=== PATIENT | female | born 1960 | race Two or more races ===

== ENCOUNTER 2017-04-28 13:20 | Emergency (ER) | payer OTHER ==
[~2017-04-28] VITALS: Ht 160 cm; Wt 98.0 kg
[2017-04-28] MEDS ORDERED: SODIUM CHLORIDE 0.9% 1,000 ML IV ONE (13:49)
[2017-04-28 14:29] LABS: Urine Bilirubin Negative (Negative); Urine Blood Negative /uL (Negative); Urine Ca Oxalate Crystal MANY (None Seen); Urine Color Yellow (Yellow); Urine Glucose Normal (Normal); Urine Hyaline Cast FEW /lpf (0 - 2); Urine Ketone Negative (Negative); Urine Mucus FEW (None Seen); Urine Nitrite Negative (Negative); Urine RBC 1 /hpf (0 - 4); Urine Squamous Epithelial Cell FEW /hpf (<5); Urine Urobilinogen Normal (Negative); Urine pH 5.5 (5.0-8.0)
[2017-04-28 14:29] LABS: Basophils # (auto) 0.1 uL; CONDITION Y; Eosinophils # (auto) 0.2 uL; Eosinophils % (auto) 1.2 % (0.0-7.0); Hematocrit 45.3 % (36.0-46.0); Hemoglobin 15.1 g/dL (12.2-16.2); Lymphocytes # (auto) 4.3 uL; Lymphocytes % (auto) 32.3 % (10.0-50.0); Mean Corpuscular Hemoglobin 28.7 pg (28.0-32.0); Mean Corpuscular Hgb Conc. 33.2 g/dL (32.0-36.0); Mean Corpuscular Volume 86.4 fL (80.0-100.0); Mean Platelet Volume 8.6 fL (7.4-10.4); Monocytes # (auto) 0.8 uL; Monocytes % (auto) 5.6 % (0.0-12.0); Neutrophils % (auto) 59.9 % (37.0-80.0); Platelet Count (auto) 289 10^3/uL (140-450); Red Cell Distribution Width 14.7 % (11.6-16.0); White Blood Cell 13.4 10^3/uL (4.4-10.8)
[2017-04-28 14:57] LABS: Albumin 3.4 g/dL (3.4-5.0); Alkaline Phosphatase 82 U/L (45-117); Anion Gap 8 (5-15); Aspartate Aminotransferase 8 U/L (15-37); BUN/Creatinine Ratio 25.6; Bilirubin, Total 0.2 mg/dL (0.2-1.0); Blood Urea Nitrogen 23 mg/dL (7-18); Calcium 8.3 mg/dL (8.5-10.1); Carbon Dioxide 24 mmol/L (21-32); Chloride 109 mmol/L (98-107); GFR African American 84 mL/min; GFR Non-African American 69 mL/min; Glucose 130 mg/dL (74-106); Magnesium 2.5 mg/dL (1.6-2.6); Potassium 3.5 mmol/L (3.5-5.1); Sodium 141 mmol/L (136-145); Total Protein 7.4 g/dL (6.4-8.2)
[2017-04-28 16:10] VITALS: BP 104/54
== END 2017-04-28 16:22 | disposition home or self-care (01) ==
LOC: ER 13:26
DX: S82.62XA Displaced fracture of lateral malleolus of left fibula, initial encounter for closed fracture (principal); S52.502A Unspecified fracture of the lower end of left radius, initial encounter for closed fracture; N39.0 Urinary tract infection, site not specified; Z90.49 Acquired absence of other specified parts of digestive tract; W18.39XA Other fall on same level, initial encounter; Y93.89 Activity, other specified; Y92.89 Other specified places as the place of occurrence of the external cause; Y99.8 Other external cause status
CPT/HCPCS: 29125; 29515; 36415; 70450; 72125; 73100; 73600; 80053; 81001; 83735; 84484; 85025; 93005; 94761; 96360; 99285; J7030; L0120

== ENCOUNTER 2023-02-10 13:04 | Emergency (ER) | payer SELFPAY ==
[~2023-02-10] VITALS: Ht 160 cm; Wt 99.0 kg
[2023-02-10 13:25] LABS: Basophils # (auto) 0 10 ^3/uL (0-0.2); Basophils % (auto) 0.4 % (0.0-2.0); Eosinophils # (auto) 0.3 10 ^3/uL (0-0.8); Eosinophils % (auto) 2.7 % (0.0-7.0); Hematocrit 46.1 % (36.0-46.0); Hemoglobin 15.3 g/dL (12.2-16.2); Lymphocytes # (auto) 2.5 10 ^3/uL (0.4-5.4); Lymphocytes % (auto) 23.7 % (10.0-50.0); Mean Corpuscular Hemoglobin 29.1 pg (28.0-32.0); Mean Corpuscular Hgb Conc. 33.1 g/dL (32.0-36.0); Mean Corpuscular Volume 87.8 fL (80.0-100.0); Monocytes # (auto) 0.7 10 ^3/uL (0-1.3); Monocytes % (auto) 6.2 % (0.0-12.0); Neutrophils # (auto) 7.1 10 ^3/uL (1.6-8.6); Nucleated Red Blood Cells % 0.1 %; Red Blood Cells 5.25 10^6/uL (4.0-5.20); Red Cell Distribution Width 14.2 % (11.8-14.3); White Blood Cell 10.6 10^3/uL (4.4-10.8)
[2023-02-10 13:43] LABS: Potassium 4.3 mmol/L (3.5-5.1)
[2023-02-10 13:57] LABS: Albumin 3.9 g/dL (3.4-5.0); BUN/Creatinine Ratio 21.3 (10.0-20.0); Bilirubin, Total 0.4 mg/dL (0.2-1.0); Magnesium 2.6 mg/dL (1.6-2.6); Total Protein 8.2 g/dL (6.4-8.2)
[2023-02-10 13:59] LABS: INR 0.98 (0.9-1.15); Partial Thromboplastin Time 33.1 sec (24.6-33.4)
[2023-02-10 20:58] VITALS: BP 138/75
[2023-02-10] MEDS ORDERED: MAALOX PLUS or MAALOX 30 ML PO ONE (21:15)
== END 2023-02-11 00:15 | disposition left against medical advice (07) ==
LOC: ER 13:04
DX: R07.2 Precordial pain (principal); R06.02 Shortness of breath; R11.0 Nausea; E11.9 Type 2 diabetes mellitus without complications; I10 Essential (primary) hypertension; Z98.51 Tubal ligation status; Z90.49 Acquired absence of other specified parts of digestive tract; Z98.890 Other specified postprocedural states
CPT/HCPCS: 36415; 71045; 80053; 83735; 83880; 84484; 85025; 85610; 85730; 93005